=== PATIENT | female | born 1990 | race Caucasian/White ===

== ENCOUNTER 2024-10-18 11:31 | Emergency (ER) | payer OTHER, SELFPAY ==
[2024-10-18 11:38] VITALS: BP 113/66; PULSE 91; RESP 16; TEMP 37.1; O2SAT 98
--- NOTE | 2024-10-18 11:46 | DI.RAD.S_ITS ---
PROCEDURE: XR CHEST 1V INDICATIONS: chest pain TECHNIQUE: One view of the chest was acquired. COMPARISON: None. FINDINGS: Surgical changes and devices: None. Lungs and pleura: Lungs are clear. No pleural effusions or pneumothorax. Mediastinum: Mediastinal contours appear normal. Heart size is normal. Bones and chest wall: No suspicious bony lesions. Overlying soft tissues appear unremarkable. IMPRESSION: No acute cardiopulmonary pathology. Dictated by: Tao Torres M.D. on 10/18/2024 at 12:37 Approved by: Tao Torres M.D. on 10/18/2024 at 12:37
--- NOTE | 2024-10-18 11:46 | DI.US.S_ITS ---
PROCEDURE: US OB LIMITED INDICATIONS: 18 wks preg, fall to the ground OUTSIDE/PRIOR DATING DATA: The calculations are made using the patient reported GERI of 03/18/2025 TECHNIQUE: Real-time scanning was performed of the fetus, with image documentation . Endovaginal scanning: Not performed COMPARISON: None. FINDINGS: General: A single living intrauterine gestation is present. Presentation: Transverse with head towards the maternal right side. Placenta: Placental position is anterior, without previa. Amniotic fluid index: 16.3 cm, normal range is 5-24 cm. Single deepest vertical pocket is 5.4 cm. heart rate: 158 beats per minute. Maternal cervical canal: 3.8 cm long. Normal lower limit is 2.5 cm. Delete Clinically estimated gestational age: 18 weeks, 3 days. IMPRESSION: 1. Single live intrauterine gestation with fetus in transverse presentation. heart rate is 158 beats per minute. Normal NICKY at 16.3 cm. 2. Placental position is anterior without placenta previa. Cervix is closed and measures 3.8 cm in length. We strive to produce accurate, complete, and clear reports of imaging services. To assist us in improving patient care, this report was composed using standard report templates and voice recognition software. Therefore, it may contain abnormal punctuation, insertions and/or omissions. Occasional wrong-word or sound-alike substitutions may occur. Though we review the report and make efforts to correct it, we do recommend that the report be read carefully in proper context to recognize any text inaccuracies. Dictated by: Tao Torres M.D. on 10/18/2024 at 12:52 Approved by: Tao Torres M.D. on 10/18/2024 at 12:54
--- NOTE | 2024-10-18 11:59 | EKG_ITS ---
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
[2024-10-18 12:36] LABS: Add Manual Diff / Slide Review NO; Basophils Absolute Auto 100 /uL (0-100); Basophils Percent Auto 0.6 % (0-2); Eosinophils Absolute Auto 100 /uL (0-450); Eosinophils Percent Auto 0.5 % (2-4); Hematocrit 40.2 % (36-46); Hemoglobin 13.5 g/dL (12.0-16.0); Lymphocytes Absolute Auto 1200 /uL (1100-4500); Lymphocytes Percent Auto 11.9 % (25-40); Mean Corpuscular HGB Conc 33.6 % (30-36); Mean Corpuscular Hemoglobin 28.8 PG (26-34); Mean Corpuscular Volume 85.8 fL (80-100); Monocytes Absolute Auto 500 /uL (0-900); Monocytes Percent Auto 5.2 % (3-14); Neutrophils Absolute Auto 8500 /uL (1500-7000); Neutrophils Percent Auto 81.8 % (50-75); Platelet Count 329 X10^3/uL (150-400); Red Blood Cell Count 4.69 X10^6/uL (4.0-5.2); Red Cell Distribution Width 14.3 % (11.6-14.8); White Blood Cell Count 10.4 X10^3/uL (4.5-11.0)
[2024-10-18 12:45] LABS: Alanine Aminotransferase 15 IU/L (<35); Albumin Globulin Ratio 1.3 (1.0-2.8); Alkaline Phosphatase 49 U/L (38-126); Aspartate Aminotransferase 19 IU/L (14-36); BUN Creatinine Ratio 13.8 (6-22); Bilirubin Total 0.7 mg/dL (0.2-1.3); Blood Urea Nitrogen 8 mg/dL (7-17); Carbon Dioxide 25 mmol/L (22-32); Chloride 103 mmol/L (98-107); Creatine Kinase 23 U/L (30-135); Estimated Glomerular Filt Rate > 60 mL/min (>60); Globulin 3.2 g/dL (1.7-4.1); Glucose 86 mg/dL (70-100); HEMOLYSIS < 15 (0-50); Lipase 63 U/L (23-300); Sodium 135 mmol/L (137-145); Total Protein 7.2 g/dL (6.3-8.2)
[2024-10-18 12:56] LABS: NT-proBNP (BNP-Adult 18+) 27 pg/mL (<125); Troponin I < 0.012 ng/mL (0.01-0.034)
[2024-10-18 13:00] LABS: Prothrombin Time 10.9 SECONDS (9.4-12.5)
[2024-10-18 13:03] LABS: PTT Partial Thromboplastin Tim 29 SECONDS (25.1-36.5)
[2024-10-18 14:45] VITALS: BP 114/69; BP 114/74; BP 127/79; PULSE 103; PULSE 83; PULSE 98
[2024-10-18 15:00] VITALS: BP 114/74; PULSE 83; RESP 16; O2SAT 100
--- NOTE | 2024-10-18 15:06 | EKG_ITS ---
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
[2024-10-18 15:54] VITALS: BP 114/65; PULSE 80; RESP 16; O2SAT 100
--- NOTE | 2024-10-18 16:10 | ED_ITS ---
HPI - Syncope <Denisha Turcios PA-C - Last Filed: 10/18/24 16:22> General Chief Complaint: Syncope Stated Complaint: 18 wks /blacked out x2/blood pressure Time Seen by Provider: 10/18/24 14:41 Source: patient Mode of arrival: Ambulatory History of Present Illness HPI narrative: 34-year-old female who is 18 weeks presents to the ED with 2 episodes of syncope just prior to arrival. Patient states that she was at the [facility] waiting in line, when she started feeling lightheaded, saw some dark spots and felt like her hearing faded away prior to syncopized ring to the floor. Patient does not report any discomfort or injuries from the fall. Patient states she was out for about 10-20 seconds. She then regained consciousness, declined calling 911 since she felt fine. A few minutes later, when she was at the counter, she again felt some prodrome symptoms of lightheadedness, sweatiness prior to syncopized again. This time, patient just slumped forward. Patient states she has a history of low blood pressure. Patient also endorses prior episodes of syncope prior to being . Patient has not had a syncopal episode during this . No chest pain, shortness of breath, fever, chills, abdominal pain. Patient does endorse some low-grade nausea throughout this . Patient also vomits about twice a week due to the nausea. Patient states that she has been inconsistent with her vitamin B6 and Unisom. Related Data Allergies Allergy/AdvReac Type Severity Reaction Status Date / Time Sulfa (Sulfonamide AdvReac Rash Verified 10/18/24 11:38 Antibiotics) Review of Systems <Denisha Turcios PA-C - Last Filed: 10/18/24 16:22> Constitutional Constitutional: Denies chills, Denies fatigue, Denies fever(s), Denies frequent falls, Denies lethargy and Denies weakness Eyes Eyes: Denies change in vision, Denies eye discharge, Denies irritation and Denies loss of vision ENT Ears, Nose, Mouth, and Throat: Denies change in voice, Denies dizziness, Denies neck pain, Denies sore throat and Denies throat swelling Cardiovascular Cardiovascular: Denies chest pain, Reports syncope, Denies irregular heart rhythm, Reports lightheadedness, Denies palpitations, Denies dyspnea, Denies dyspnea on exertion and Denies orthopnea Respiratory Respiratory: Denies cough, Denies dyspnea, Denies dyspnea on exertion and Denies wheezing Gastrointestinal Gastrointestinal: Denies abdominal pain, Denies change in bowel habits, Denies diarrhea, Denies nausea and Denies vomiting Musculoskeletal Musculoskeletal: Denies neck pain and Denies numbness Integumentary/Breasts Skin/Breast: Denies pruritus, Denies erythema, Denies rash and Denies wounds Neurologic Neurologic: Denies behavioral changes, Denies confusion, Denies dizziness, Reports syncope, Denies frequent falls, Denies loss of vision, Denies numbness and Denies weakness Psychiatric Psychiatric: Denies anxiety, Denies behavioral changes, Denies confusion, Denies depression, Denies homicidal ideation and Denies suicidal ideation Endocrine Endocrine: Denies fatigue, Denies flushing and Denies palpitations Hematologic/Lymphatic Hematologic/Lymphatic: Denies easy bruising Allergic/Immunologic Allergic/Immunologic: Denies urticaria, Denies throat swelling and Denies wheezing Patient History <Denisha Turcios PA-C - Last Filed: 10/18/24 16:22> Social History Smoking Status: Never smoker Smoking Status: Never smoker Exam <Denisha Turcios PA-C - Last Filed: 10/18/24 16:22> Narrative Exam Narrative: Const General:?cooperative, healthy appearing and comfortable [facility] Head:?normal to inspection Ears:?hearing grossly normal bilaterally Nose:?external nose normal Face and sinus:?normal facial exam and sinuses nontender Mouth:?oral mucosae normal Throat:?posterior oropharynx normal Eyes General:?appearance normal, both eyes and all related structures Neck Neck:?normal visual inspection and no lymphadenopathy noted Resp Effort & Inspection:?normal respiratory effort Auscultation:?clear to auscultation bilaterally Cardio Rate:?regular rate Rhythm:?regular rhythm Neuro General:?patient alert, patient awake and patient oriented x3 Initial Vital Signs Initial Vital Signs: Vital Signs Temperature 98.7 F 10/18/24 11:38 Pulse Rate 91 H 10/18/24 11:38 Respiratory Rate 16 10/18/24 11:38 Blood Pressure 113/66 10/18/24 11:38 Pulse Oximetry 98 10/18/24 11:38 Oxygen Delivery Method Room Air 10/18/24 11:38 <Palakjuan carlos Fierro - Last Filed: 10/19/24 19:10> Initial Vital Signs Initial Vital Signs: Vital Signs Temperature 98.7 F 10/18/24 11:38 Pulse Rate 91 H 10/18/24 11:38 Respiratory Rate 16 10/18/24 11:38 Blood Pressure 113/66 10/18/24 11:38 Pulse Oximetry 98 10/18/24 11:38 Oxygen Delivery Method Room Air 10/18/24 11:38 Course <Denisha Turcios PA-C - Last Filed: 10/18/24 16:22> Orders Ordered: ED Orders 10/18/24 11:46 US OB limited Stat XR chest 1V Stat EKG-12 Lead Stat 10/18/24 12:25 Complete Blood Count AUTO DIFF Stat Comprehensive Metabolic Panel Stat Lipase Stat Magnesium Stat NT-proBNP (BNP-Adult 18+) Stat PTT Partial Thromboplastin Hasmukh Stat Prothrombin Time INR Stat Troponin & CK Cardiac Panel Stat 10/18/24 15:02 EKG-12 Lead Stat Vital Signs Vital signs: Vital Signs - 8 hr 10/18/24 11:38 10/18/24 14:45 10/18/24 15:00 Temperature 98.7 F Pulse Rate 91 H 83 Pulse Rate [Orthostatic Lying] 83 Pulse Rate [Orthostatic Sitting] 103 H Pulse Rate [Orthostatic Standing] 98 H Respiratory Rate 16 16 Blood Pressure 113/66 114/74 Blood Pressure [Orthostatic Lying] 114/74 Blood Pressure [Orthostatic Sitting] 114/69 Blood Pressure [Orthostatic Standing] 127/79 Pulse Oximetry 98 100 Oxygen Delivery Method Room Air Room Air <Palak Fierro DO - Last Filed: 10/19/24 19:10> Orders Ordered: ED Orders 10/18/24 11:46 US OB limited Stat XR chest 1V Stat EKG-12 Lead Stat 10/18/24 12:25 Complete Blood Count AUTO DIFF Stat Comprehensive Metabolic Panel Stat Lipase Stat Magnesium Stat NT-proBNP (BNP-Adult 18+) Stat PTT Partial Thromboplastin Hasmukh Stat Prothrombin Time INR Stat Troponin & CK Cardiac Panel Stat 10/18/24 15:02 EKG-12 Lead Stat Vital Signs Vital signs: Vital Signs - 8 hr 10/18/24 11:38 10/18/24 14:45 10/18/24 15:00 Temperature 98.7 F Pulse Rate 91 H 83 Pulse Rate [Orthostatic Lying] 83 Pulse Rate [Orthostatic Sitting] 103 H Pulse Rate [Orthostatic Standing] 98 H Respiratory Rate 16 16 Blood Pressure 113/66 114/74 Blood Pressure [Orthostatic Lying] 114/74 Blood Pressure [Orthostatic Sitting] 114/69 Blood Pressure [Orthostatic Standing] 127/79 Pulse Oximetry 98 100 Oxygen Delivery Method Room Air Room Air MDM - Syncope <Denisha Turcios PA-C - Last Filed: 10/18/24 16:22> Lab Data 10/18/24 12:25 10/18/24 12:25 Labs: Lab Results 10/18/24 Range/Units 12:25 WBC 10.4 (4.5-11.0) X10^3/uL RBC 4.69 (4.0-5.2) X10^6/uL Hgb 13.5 (12.0-16.0) g/dL Hct 40.2 (36-46) % MCV 85.8 (80-100) fL MCH 28.8 (26-34) PG MCHC 33.6 (30-36) % RDW 14.3 (11.6-14.8) % Plt Count 329 (150-400) X10^3/uL Neut % (Auto) 81.8 H (50-75) % Lymph % (Auto) 11.9 L (25-40) % [place] % (Auto) 5.2 (3-14) % Eos % (Auto) 0.5 L (2-4) % Baso % (Auto) 0.6 (0-2) % Neut # (Auto) 8500 H (5379-6609) /uL Lymph # (Auto) 1200 (8641-1171) /uL [place] # (Auto) 500 (0-900) /uL Eos # (Auto) 100 (0-450) /uL Baso # (Auto) 100 (0-100) /uL PT 10.9 (9.4-12.5) SECONDS INR 1.0 (0.9-1.3) APTT 29 (25.1-36.5) SECONDS Sodium 135 L (137-145) mmol/L Potassium 4.0 (3.4-5.1) mmol/L Chloride 103 (98-107) mmol/L Carbon Dioxide 25 (22-32) mmol/L BUN 8 (7-17) mg/dL Creatinine 0.58 (0.52-1.04) mg/dL Estimated GFR > 60 (>60) mL/min BUN/Creatinine Ratio 13.8 (6-22) Glucose 86 (70-100) mg/dL Calcium 9.0 (8.4-10.2) mg/dL Magnesium 2.0 (1.6-2.3) mg/dL Total Bilirubin 0.7 (0.2-1.3) mg/dL AST 19 (14-36) IU/L ALT 15 (<35) IU/L Alkaline Phosphatase 49 (38-126) U/L Total Creatine Kinase 23 L (30-135) U/L Troponin I < 0.012 (0.01-0.034) ng/mL NT-Pro-B Natriuret Pep 27 (<125) pg/mL Total Protein 7.2 (6.3-8.2) g/dL Albumin 4.0 (3.5-5.0) g/dL Globulin 3.2 (1.7-4.1) g/dL Albumin/Globulin Ratio 1.3 (1.0-2.8) Lipase 63 (23-300) U/L MDM Narrative Medical decision making narrative: 34-year-old female who is 18 weeks presents to the ED with 2 episodes of syncope just prior to arrival. History is most consistent with vasovagal etiology of the syncope. Ultrasound was obtained which shows a single live intrauterine gestation clinically estimated at 18 weeks, 3 days. Placental position is anterior without placenta previa. Cervix is closed and measures 3.8 cm in length. Labs are within normal limits. H&H is stable. The 1st EKG showed a normal sinus rhythm, with a T-wave abnormality in leads 3 and AVF. EKG was repeated which shows T-wave abnormality isolated to lead 3. Chest x-ray without acute findings. Troponin within normal limits. It is possible that patient has not been hydrating well enough due to the constant low-grade nausea. Patient does endorse that she did not drink much water this morning. Recommend that patient be consistent with the vitamin B6 to avoid the nausea and be able to consume enough water. Recommend follow-up with OBGYN as soon as possible. Patient did call her OBGYN earlier today, will follow-up. ED return precautions were discussed with patient. Patient verbalized understanding. Medical records reviewed: Yes <Palak Fierro, DO - Last Filed: 10/19/24 19:10> Lab Data Labs: Lab Results 10/18/24 Range/Units 12:25 WBC 10.4 (4.5-11.0) X10^3/uL RBC 4.69 (4.0-5.2) X10^6/uL Hgb 13.5 (12.0-16.0) g/dL Hct 40.2 (36-46) % MCV 85.8 (80-100) fL MCH 28.8 (26-34) PG MCHC 33.6 (30-36) % RDW 14.3 (11.6-14.8) % Plt Count 329 (150-400) X10^3/uL Neut % (Auto) 81.8 H (50-75) % Lymph % (Auto) 11.9 L (25-40) % [place] % (Auto) 5.2 (3-14) % Eos % (Auto) 0.5 L (2-4) % Baso % (Auto) 0.6 (0-2) % Neut # (Auto) 8500 H (4410-6339) /uL Lymph # (Auto) 1200 (6567-5621) /uL [place] # (Auto) 500 (0-900) /uL Eos # (Auto) 100 (0-450) /uL Baso # (Auto) 100 (0-100) /uL PT 10.9 (9.4-12.5) SECONDS INR 1.0 (0.9-1.3) APTT 29 (25.1-36.5) SECONDS Sodium 135 L (137-145) mmol/L Potassium 4.0 (3.4-5.1) mmol/L Chloride 103 (98-107) mmol/L Carbon Dioxide 25 (22-32) mmol/L BUN 8 (7-17) mg/dL Creatinine 0.58 (0.52-1.04) mg/dL Estimated GFR > 60 (>60) mL/min BUN/Creatinine Ratio 13.8 (6-22) Glucose 86 (70-100) mg/dL Calcium 9.0 (8.4-10.2) mg/dL Magnesium 2.0 (1.6-2.3) mg/dL Total Bilirubin 0.7 (0.2-1.3) mg/dL AST 19 (14-36) IU/L ALT 15 (<35) IU/L Alkaline Phosphatase 49 (38-126) U/L Total Creatine Kinase 23 L (30-135) U/L Troponin I < 0.012 (0.01-0.034) ng/mL NT-Pro-B Natriuret Pep 27 (<125) pg/mL Total Protein 7.2 (6.3-8.2) g/dL Albumin 4.0 (3.5-5.0) g/dL Globulin 3.2 (1.7-4.1) g/dL Albumin/Globulin Ratio 1.3 (1.0-2.8) Lipase 63 (23-300) U/L ECG Data Attestation: I personally reviewed and interpreted this ECG as follows: Interpretation: EKG 1 shows sinus rhythm rate 80 WV 124 QRS is 72 QTC of 360, treatment burden 3 and AVF mount appreciated 2. Other acute ST elevation or depression. EKG 2 shows sinus rhythm, rate of 74 WV 126 QRS is 72 QTC 382, no acute ST elevation T-wave inversion in 3, no other changes appreciated. Discharge Plan Departure Patient Disposition: Home Clinical Impression: Vasovagal syncope Instructions: DI for Syncope in Adults (Fainting) Activity Restrictions/Additional Instructions: You were evaluated in the ED today for fainting twice. Your labs, ultrasound were normal. It is advised that you stay well hydrated. Please continue to take the vitamin B6 regularly to prevent nausea, so you can drink more water. Please follow-up with your OBGYN as soon as possible. Return to the ED if you have worsening symptoms, chest pain, shortness of breath, further episodes of fainting. Referrals: Jose Carlos Jaime DO [Primary Care Provider] - Stand Alone Forms: Patient Portal/API/Survey
== END 2024-10-18 15:54 | disposition home or self-care (01) ==
PROVIDERS: Emergency Medicine; Emergency Provider Student in an Organized Health Care Education/Training Program; PCP Family Medicine
DX: O26.892 Other specified pregnancy related conditions, second trimester (principal); R55 Syncope and collapse; Z3A.18 18 weeks gestation of pregnancy
CPT/HCPCS: 36415; 71045; 76815; 80053; 82550; 83690; 83735; 83880; 84484; 85025; 85610; 85730; 93005; 99284

== ENCOUNTER 2024-12-31 10:07 | Outpatient (CLI) | payer OTHER, SELFPAY ==
[2024-12-31 10:44] LABS: Appearance Urine UA CLEAR; Bilirubin Urine UA NEGATIVE (NEGATIVE); Color Urine UA YELLOW; Glucose Urine UA NEGATIVE (Negative); Ketones Urine UA NEGATIVE (NEGATIVE); Leukocyte Esterase Urine UA NEGATIVE (NEGATIVE); Nitrite Urine UA NEGATIVE (Negative); Occult Blood Urine UA NEGATIVE (Negative); Protein Urine UA NEGATIVE (Negative); Urobilinogen Urine UA 0.2 E.U./dL (0.2)
[2024-12-31 10:48] LABS: pH Urine UA 6.5 (4.5-8.0)
[2024-12-31 11:00] LABS: Bacteria Urine None Seen; Culture Indicated Urine Cult Not Indicated; RBC Urine 0-1/HPF (0-5/HPF); Squamous Epithelial Cell Urine 1-5 /HPF (0-5/HPF); Urine Volume 10mL (spun); WBC Urine 0-1/HPF (0-5/HPF)
[2024-12-31] MEDS: LACTATED RINGERS 1,000 ML 1000 ML IV (11:15)
--- NOTE | 2024-12-31 11:16 | P.TNLD_ITS ---
Visit Information Visit Information Date of evaluation: 12/31/24 On-call OB Provider: Peggy Argueta Reason for Evaluation: Yes other Comments/Additional reasons for admission: The patient, a 29-week , presents with severe lower back pain, diarrhea, and vomiting since Friday night. Symptoms began with an unsuccessful bowel movement attempt, lower back pain, and malaise. By Friday, the back pain was rated 8- 9/10, occurring every couple of hours, causing the patient to hunch over. The pain wraps around to the front. Vomiting has progressed to hematochezia. movement remains normal. The patient receives care at [facility], [place]. A cervical check yesterday showed it was fully closed. A hemorrhoid was identified during the current visit. The patient's medical history includes being 29 weeks () and pre- existing hemorrhoids. The review of systems indicates malaise, gastrointestinal symptoms including diarrhea, vomiting, and hematochezia, genitourinary symptoms of hemorrhoids, and musculoskeletal symptoms of lower back pain. Exam Narrative Exam Narrative: Spec exam with closed cervix. Hemorrhoids present on exam. Objective Labs Labs: Laboratory Results - last 24 hr 12/31/24 10:30 Urine Color Yellow Urine Appearance Clear Urine pH 6.5 Ur Specific [place] 1.020 Urine Protein Negative Urine Glucose (UA) Negative Urine Ketones Negative Urine Occult Blood Negative Urine Nitrate Negative Urine Bilirubin Negative Urine Urobilinogen 0.2 Ur Leukocyte Esterase Negative Urine RBC 0-1/hpf Urine WBC 0-1/hpf Ur Squamous Epith Cells 1-5 /hpf Urine Bacteria None seen Ur Culture Indicated? Cult not indicated Vol Urine Centrifuged 10ml (spun) Evaluation Evaluation Baseline heart rate: 140 Variability: Average (6-10) monitor accelerations: Present Monitor Decelerations: Absent Category of Tracing: Reactive Diagnosis, Plan/Disposition Plan/Disposition Plan: 1. Acute Gastroenteritis with Dehydration 31yo female, G2 at 29 weeks gestation, presenting with severe lower back pain, bright red rectal bleeding, vomiting, and constipation since Friday night. Symptoms worsened over the week. By Friday, severe back pain (8-9/10) every couple hours with vomiting. Bright red blood in vomitus concerning. DDx: viral/b acterial gastroenteritis, -related complications. Likely dehydrated. -IV fluids for rehydration -Diagnostics: urinalysis, vaginal swab for BV and yeast : neg UA, occasional yeast on wet prep (exam without significant yeast) -Monitor movement -GI stool assay sent 2. Hemorrhoids Large hemorrhoid present, likely cause of rectal bleeding and discomfort. -Increase dietary fiber -OTC hemorrhoid cream -Recommend hemorrhoid wipes with lidocaine and witch caesar -Educate on anal hygiene and avoiding straining 3. (G2 at 29 weeks gestation) 29 weeks . Recent cervical check at [facility]: fully closed cervix. Again fully closed on exam today. Normal movement reported. -Continue routine care with [facility] -Monitor movement -Educate on labor signs and when to seek immediate care OB Disposition: home
== END 2024-12-31 12:00 | disposition home or self-care (01) ==
LOC: OB 13:19
PROVIDERS: PCP Family Medicine; Referring Provider Student in an Organized Health Care Education/Training Program; Visit Provider Student in an Organized Health Care Education/Training Program
DX: O22.43 Hemorrhoids in pregnancy, third trimester (principal); O99.613 Diseases of the digestive system complicating pregnancy, third trimester; K52.9 Noninfective gastroenteritis and colitis, unspecified; O26.893 Other specified pregnancy related conditions, third trimester; E86.0 Dehydration; Z3A.29 29 weeks gestation of pregnancy
CPT/HCPCS: 59025; 81001; 87210; 87507; 96360; G0378; G0379

== ENCOUNTER → 2024-12-31 14:04 | Outpatient (CLI) | payer OTHER, SELFPAY ==
[2024-12-31 22:28] LABS: Adenovirus F 40/41 Not Detected (Not Detect); Astrovirus Not Detected (Not Detect); Campylobacter Not Detected (Not Detect); Clostridium difficile toxin AB Not Detected (Not Detect); Cryptosporidium Not Detected (Not Detect); Cyclospora cayetanensis Not Detected (Not Detect); Entamoeba histolytica Not Detected (Not Detect); Enteroaggregative E.coli Not Detected (Not Detect); Enteropathogenic E.coli Not Detected (Not Detect); Enterotoxigenic E.coli It/st Not Detected (Not Detect); Giardia lamblia Not Detected (Not Detect); Norovirus GI/GII Not Detected (Not Detect); Plesiomonsa shigelloides Not Detected (Not Detect); Rotavirus A Not Detected (Not Detect); Salmonella Not Detected (Not Detect); Sapovirus Not Detected (Not Detect); Shiga-like toxin-prod E.coli Not Detected (Not Detect); Shigella/Enteroinvasive E.coli Not Detected (Not Detect); Vibrio Not Detected (Not Detect); Vibrio cholerae Not Detected (Not Detect); Yersinia enterocolitica Not Detected (Not Detect)
== END ==
PROVIDERS: PCP Family Medicine; Visit Provider Student in an Organized Health Care Education/Training Program
DX: R19.7 Diarrhea, unspecified (principal)
CPT/HCPCS: 87507